=== PATIENT | female | born 1975 | race African-American/Black ===

== ENCOUNTER 2016-03-01 23:51 | Emergency (ER) | payer MEDICAID ==
[~2016-03-01] VITALS: Ht 170.2 cm; Wt 86.2 kg
[~2016-03-01 23:51] MED LIST: ATEN-60; ERGO1CAP6 PO; FAMO-12 PO; FER325T PO; OMEP20CA5 PO; ONDA4TAB8 SL; SUCR1TAB38 OR
[2016-03-02] MEDS ORDERED: HYDROmorphone HCL 2 MG/ML VL IV ONE (05:15)
[2016-03-02] MEDS ORDERED: SODIUM CHLORIDE 0.9% 1,000 ML IV ONE (05:15)
[2016-03-02] MEDS ORDERED: PROMETHAZINE HCL 25 MG/ML 1ML IV ONE (05:15)
[2016-03-02] MEDS ORDERED: PANTOPRAZOLE SODIUM 40 MG/10 ML VIAL IV ONE (05:15)
[2016-03-02 06:11] LABS: Basophils # (auto) 0 uL; Basophils % (auto) 0.8 % (0.0-2.0); Eosinophils # (auto) 0.1 uL; Eosinophils % (auto) 1.1 % (0.0-7.0); Hematocrit 33.1 % (36.0-46.0); Hemoglobin 10.8 g/dL (12.2-16.2); Lymphocytes # (auto) 1.6 uL; Lymphocytes % (auto) 34.8 % (10.0-50.0); Mean Corpuscular Hemoglobin 30.3 pg (28.0-32.0); Mean Corpuscular Hgb Conc. 32.6 g/dL (32.0-36.0); Mean Corpuscular Volume 92.8 fL (80.0-100.0); Mean Platelet Volume 7.8 fL (7.4-10.4); Monocytes # (auto) 0.2 uL; Monocytes % (auto) 3.9 % (0.0-12.0); Neutrophils # (auto) 2.8 uL; Neutrophils % (auto) 59.4 % (37.0-80.0); Platelet Count (auto) 212 10^3/uL (140-450); Red Cell Distribution Width 16.6 % (11.6-16.0); White Blood Cell 4.6 10^3/uL (4.4-10.8)
[2016-03-02 06:25] LABS: Albumin 3.5 g/dL (3.4-5.0); BUN/Creatinine Ratio 7.5; Bilirubin, Total 1.1 mg/dL (0.2-1.0); Calcium 8.1 mg/dL (8.5-10.1); Potassium 3.1 mmol/L (3.5-5.1); Total Protein 6.9 g/dL (6.4-8.2)
[2016-03-02] MEDS ORDERED: POTASSIUM CHL 20 Meq TABLET PO ONE (07:15)
[2016-03-02 08:21] VITALS: BP 134/98
== END 2016-03-02 11:19 | disposition home or self-care (01) ==
LOC: EDBD 23:51 → EDUNIT# 23:51 → ER 23:56
DX: K80.20 Calculus of gallbladder without cholecystitis without obstruction (principal); R10.13 Epigastric pain; K21.9 Gastro-esophageal reflux disease without esophagitis; I10 Essential (primary) hypertension; M54.9 Dorsalgia, unspecified; G89.29 Other chronic pain; R11.2 Nausea with vomiting, unspecified; Z79.899 Other long term (current) drug therapy
CPT/HCPCS: 36415; 74000; 80053; 80320; 83690; 84702; 85025; 96361; 96374; 96375; 99285; C9113; J1170; J2550; J7030

== ENCOUNTER 2016-05-25 23:03 | Observation (INO) | payer MEDICAID ==
[~2016-05-25] VITALS: Ht 170.2 cm; Wt 94.3 kg
[2016-05-26 02:27] LABS: Urine Color Brown (Yellow); Urine Glucose Normal (Normal); Urine Hyaline Cast MANY /lpf (0 - 2); Urine Mucus FEW (None Seen); Urine Nitrite Negative (Negative); Urine RBC 761 /hpf (0 - 4); Urine Squamous Epithelial Cell FEW /hpf (<5); Urine pH 5.5 (5.0-8.0)
[2016-05-26 02:30] LABS: Urine Bilirubin 2+ (Negative); Urine Blood 3+ /uL (Negative); Urine Ketone 1+ (Negative)
[2016-05-26] MEDS ORDERED: ONDANSETRON HCL 4 MG/2 ML VIAL IV ONE (05:30)
[2016-05-26] MEDS ORDERED: SODIUM CHLORIDE 0.9% 1,000 ML IVB ONE (07:10)
[2016-05-26] MEDS ORDERED: DONNATAL 5ml ORAL Elix (BELLADONNA ALK-PHENOBARB) PO ONE (07:15)
[2016-05-26] MEDS ORDERED: cefTRIAXone 1GM/50ML D5W AE IV ONE (07:15)
[2016-05-26] MEDS ORDERED: PROCHLORPERAZINE EDISYLATE 5 MG/ML 2ML VIAL IV ONE (07:15)
[2016-05-26] MEDS ORDERED: ALUM & MAG HYDROX-SIMETH LIQ(MAALOX) 30 ML PO ONE (07:15)
[2016-05-26] MEDS ORDERED: FAMOTIDINE 20 MG TAB PO ONE (07:15)
[2016-05-26 07:40] LABS: Basophils # (auto) 0.1 uL; Basophils % (auto) 0.6 % (0.0-2.0); Eosinophils # (auto) 0 uL; Eosinophils % (auto) 0.2 % (0.0-7.0); Hematocrit 41.9 % (36.0-46.0); Hemoglobin 13.9 g/dL (12.2-16.2); Lymphocytes # (auto) 1.8 uL; Lymphocytes % (auto) 17.2 % (10.0-50.0); Mean Corpuscular Hemoglobin 31.6 pg (28.0-32.0); Mean Corpuscular Hgb Conc. 33.2 g/dL (32.0-36.0); Mean Corpuscular Volume 95.4 fL (80.0-100.0); Mean Platelet Volume 8.9 fL (7.4-10.4); Monocytes # (auto) 0.7 uL; Neutrophils # (auto) 7.7 uL; Platelet Count (auto) 311 10^3/uL (140-450); Red Cell Distribution Width 15.8 % (11.6-16.0); White Blood Cell 10.3 10^3/uL (4.4-10.8)
[2016-05-26 09:31] LABS: Albumin 3.9 g/dL (3.4-5.0); BUN/Creatinine Ratio 13.1; Bilirubin, Total 1.6 mg/dL (0.2-1.0); Calcium 8.8 mg/dL (8.5-10.1); Potassium 3.9 mmol/L (3.5-5.1); Total Protein 8.8 g/dL (6.4-8.2)
[2016-05-26 12:11] VITALS: BP 105/74
[2016-05-26] MEDS ORDERED: NALBUPHINE HCL 10 MG/1ml INJECTION IV ONE (12:15)
[2016-05-26] MEDS ORDERED: METOCLOPRAMIDE HCL 5MG/ml INJ 2ml VIAL IV ONE (12:15)
== END 2016-05-26 13:58 | disposition home or self-care (01) ==
LOC: ER 23:05 → OVERFLOW 05-26 07:13 → ER 05-26 13:58
PROVIDERS: ADMIT Emergency Medicine; ATTEND Emergency Medicine
DX: K80.20 Calculus of gallbladder without cholecystitis without obstruction (principal); E87.1 Hypo-osmolality and hyponatremia; I10 Essential (primary) hypertension; G43.A0 Cyclical vomiting, in migraine, not intractable; N39.0 Urinary tract infection, site not specified; K21.9 Gastro-esophageal reflux disease without esophagitis
CPT/HCPCS: 36415; 80053; 81001; 81025; 83735; 84443; 84702; 85025; 96361; 96374; 96375; 99285; G0378; J0696; J0780; J2300; J2405; J2765

== ENCOUNTER 2016-08-07 17:10 | Inpatient (IN) | payer MEDICAID ==
[~2016-08-07] VITALS: Ht 170.2 cm; Wt 92.8 kg
[~2016-08-07 17:10] MED LIST changes: -ATEN-60; +ATEN-60 PO; -OMEP20CA5 PO; +OMEP20CA74 PO
[2016-08-07 21:02] LABS: Basophils # (auto) 0.1 uL; Basophils % (auto) 0.3 % (0.0-2.0); CONDITION AutoValidated; Eosinophils # (auto) 0 uL; Hematocrit 44.3 % (36.0-46.0); Hemoglobin 14.7 g/dL (12.2-16.2); Lymphocytes # (auto) 1.4 uL; Lymphocytes % (auto) 9.3 % (10.0-50.0); Mean Corpuscular Hemoglobin 30.3 pg (28.0-32.0); Mean Corpuscular Hgb Conc. 33.3 g/dL (32.0-36.0); Mean Corpuscular Volume 91.1 fL (80.0-100.0); Mean Platelet Volume 9.1 fL (7.4-10.4); Monocytes # (auto) 0.6 uL; Monocytes % (auto) 3.7 % (0.0-12.0); Neutrophils # (auto) 13.4 uL; Neutrophils % (auto) 86.7 % (37.0-80.0); Platelet Count (auto) 258 10^3/uL (140-450); White Blood Cell 15.4 10^3/uL (4.4-10.8)
[2016-08-07 21:21] LABS: Urine Blood Negative /uL (Negative); Urine Color Yellow (Yellow); Urine Glucose Normal (Normal); Urine Hyaline Cast MANY /lpf (0 - 2); Urine Mucus FEW (None Seen); Urine Nitrite Negative (Negative); Urine RBC 1 /hpf (0 - 4); Urine Squamous Epithelial Cell MOD /hpf (<5)
[2016-08-07 21:27] LABS: Albumin 4.1 g/dL (3.4-5.0); Alkaline Phosphatase 105 U/L (45-117); Anion Gap 27 (5-15); BUN/Creatinine Ratio 13.2; Bilirubin, Total 3.2 mg/dL (0.2-1.0); Blood Urea Nitrogen 18 mg/dL (7-18); Carbon Dioxide 11 mmol/L (21-32); Chloride 94 mmol/L (98-107); GFR African American 55 mL/min; GFR Non-African American 45 mL/min; Glucose 105 mg/dL (74-106); Sodium 132 mmol/L (136-145); Total Protein 8.9 g/dL (6.4-8.2)
[2016-08-07 21:32] LABS: Aspartate Aminotransferase 40 U/L (15-37)
[2016-08-07 21:36] LABS: Urine Bilirubin 1+ (Negative); Urine Ketone 4+ (Negative)
[2016-08-07] MEDS ORDERED: SODIUM CHLORIDE 0.9% 1,000 ML IV ONE (21:45)
[2016-08-07] MEDS ORDERED: NALBUPHINE HCL 10 MG/1ml INJECTION IV ONE (21:45)
[2016-08-07] MEDS ORDERED: ATENOLOL 50 MG TAB PO ONE (21:45)
[2016-08-07] MEDS ORDERED: ONDANSETRON HCL 4 MG/2 ML VIAL IV ONE (21:45)
[2016-08-08] MEDS ORDERED: PROMETHAZINE HCL 25 MG/ML 1ML IV ONE
[2016-08-08] MEDS ORDERED: cloNIDine HCL 0.1 MG TAB PO PRN (01:00)
[2016-08-08] MEDS ORDERED: ACETAMINOPHEN 325 MG TAB PO PRN (01:00)
[2016-08-08] MEDS ORDERED: PANTOPRAZOLE SODIUM 40 MG/10 ML VIAL IV ONE (01:00)
[2016-08-08] MEDS ORDERED: SODIUM CHLORIDE 0.9% 500 ML IV ONE (01:00)
[2016-08-08] MEDS ORDERED: HYDROcodone-ACET 5/325MG TAB PO PRN (01:00)
[2016-08-08] MEDS ORDERED: TEMAZEPAM 15 MG CAP PO PRN (01:00)
[2016-08-08] MEDS: MORPHINE SULF INJ 2 MG/ML SYRINGE 1ML IV PRN ×6 (01:39→22:54)
[2016-08-08] MEDS: ONDANSETRON HCL 4 MG/2 ML VIAL IV PRN ×6 (01:39→22:54)
[2016-08-08] MEDS: cefTRIAXone 1GM/50ML D5W 50 ML IV SCH (02:00)
[2016-08-08] MEDS: SODIUM CHLORIDE 0.9% 1,000 ML IV SCH ×2 (02:20→14:37)
[2016-08-08] MEDS ORDERED: FERR220E4 PO (04:10)
[2016-08-08] MEDS ORDERED: ZOLP10TA PO (04:10)
[2016-08-08 04:12] VITALS: BP 129/94
[2016-08-08 04:25] VITALS: BP 129/94
[2016-08-08] MEDS: SUCRALFATE 1 GM TAB PO SCH ×4 (06:53→22:20)
[2016-08-08 09:11] VITALS: BP 132/99
[2016-08-08] MEDS: PANTOPRAZOLE SODIUM 40 MG/10 ML VIAL IV SCH (09:56)
[2016-08-08] MEDS: ATENOLOL 25 MG TAB PO SCH ×2 (09:58→22:21)
[2016-08-08] MEDS: ENOXAPARIN SOD 40 MG/0.4 ML SYRINGE SC SCH (09:58)
[2016-08-08 13:42] VITALS: BP 126/88
[2016-08-08 16:59] VITALS: BP 121/81
[2016-08-08 19:29] LABS: BUN/Creatinine Ratio 13.6; Potassium 3.4 mmol/L (3.5-5.1)
[2016-08-08 22:00] VITALS: BP 130/89
[2016-08-09] MEDS ORDERED: SODIUM BICARBONATE 8.4 % INJ 50ML VIAL IV ONE (00:45)
[2016-08-09] MEDS ORDERED: SODIUM CHLORIDE 0.9% 1,000 ML IV SCH (00:49)
[2016-08-09] MEDS: SODIUM BICARB 50ML SYR 100 ML in D5W 5% 1,000 ML IV SCH ×3 (01:34→16:51)
[2016-08-09] MEDS: MORPHINE SULF INJ 2 MG/ML SYRINGE 1ML IV PRN ×3 (03:10→13:31)
[2016-08-09] MEDS: ONDANSETRON HCL 4 MG/2 ML VIAL IV PRN ×3 (03:11→13:31)
[2016-08-09] MEDS: cefTRIAXone 1GM/50ML D5W 50 ML IV SCH (03:11)
[2016-08-09 05:44] VITALS: BP 113/77
[2016-08-09] MEDS: SUCRALFATE 1 GM TAB PO SCH ×3 (06:36→17:00)
[2016-08-09 06:42] LABS: Basophils # (auto) 0 uL; Basophils % (auto) 0.4 % (0.0-2.0); CONDITION AutoValidated; Eosinophils # (auto) 0 uL; Eosinophils % (auto) 0.7 % (0.0-7.0); Hematocrit 34.9 % (36.0-46.0); Hemoglobin 11.9 g/dL (12.2-16.2); Lymphocytes # (auto) 2.4 uL; Lymphocytes % (auto) 38.1 % (10.0-50.0); Mean Corpuscular Hgb Conc. 34.1 g/dL (32.0-36.0); Mean Corpuscular Volume 90.9 fL (80.0-100.0); Mean Platelet Volume 9.5 fL (7.4-10.4); Monocytes # (auto) 0.3 uL; Monocytes % (auto) 4.5 % (0.0-12.0); Neutrophils # (auto) 3.5 uL; Neutrophils % (auto) 56.3 % (37.0-80.0); Platelet Count (auto) 167 10^3/uL (140-450); Red Cell Distribution Width 14.9 % (11.6-16.0); White Blood Cell 6.2 10^3/uL (4.4-10.8)
[2016-08-09 06:46] LABS: Albumin 3.4 g/dL (3.4-5.0); BUN/Creatinine Ratio 10.4; Bilirubin, Total 1.4 mg/dL (0.2-1.0); Potassium 3.1 mmol/L (3.5-5.1)
[2016-08-09 09:31] VITALS: BP 110/78
[2016-08-09] MEDS: PANTOPRAZOLE SODIUM 40 MG/10 ML VIAL IV SCH (10:20)
[2016-08-09 13:02] VITALS: BP 113/61
[2016-08-09] MEDS: ENOXAPARIN SOD 40 MG/0.4 ML SYRINGE SC SCH (13:33)
[2016-08-09] MEDS: ATENOLOL 25 MG TAB PO SCH (13:33)
[2016-08-09] MEDS ORDERED: POTASSIUM CHL 20 Meq TABLET PO ONE ×2 (14:15→18:00)
[2016-08-09 17:19] VITALS: BP 129/77
[2016-08-09 17:21] VITALS: BP 129/77
== END 2016-08-09 19:01 | disposition home or self-care (01) | DRG 241 ==
LOC: EDBD 17:10 → ER 17:16 → OVERFLOW 17:17 → CENTRAL 08-08 02:42
PROVIDERS: ADMIT Nurse Practitioner; ATTEND Internal Medicine
DX: K29.20 Alcoholic gastritis without bleeding (principal); N17.9 Acute kidney failure, unspecified; E87.2 Acidosis; K86.1 Other chronic pancreatitis; I10 Essential (primary) hypertension; D72.829 Elevated white blood cell count, unspecified; E86.0 Dehydration; F10.20 Alcohol dependence, uncomplicated; K21.0 Gastro-esophageal reflux disease with esophagitis; Z87.11 Personal history of peptic ulcer disease; E80.6 Other disorders of bilirubin metabolism; K44.9 Diaphragmatic hernia without obstruction or gangrene; K20.9 Esophagitis, unspecified
CPT/HCPCS: 36415; 71010; 74176; 74181; 80048; 80053; 80307; 81001; 81025; 84484; 85025; 87040; 93005; 96361; 96374; 96375; C9113; J0696; J2405

== ENCOUNTER 2016-11-21 23:48 | Emergency (ER) | payer MEDICAID ==
[~2016-11-21] VITALS: Ht 170.2 cm; Wt 95.3 kg
[~2016-11-21 23:48] MED LIST changes: -FAMO-12 PO; +FERR220E4 PO; -OMEP20CA74 PO; -ONDA4TAB8 SL; -SUCR1TAB38 OR
[2016-11-22] MEDS ORDERED: HYDROmorphone HCL 2 MG/ML VL IV ONE (01:00)
[2016-11-22] MEDS ORDERED: ONDANSETRON HCL 4 MG/2 ML VIAL IV ONE ×2 (01:00→03:00)
[2016-11-22] MEDS ORDERED: ACETAMINOPHEN 325 MG TAB PO ONE (01:15)
[2016-11-22] MEDS ORDERED: MORPHINE SULF INJ 2 MG/ML SYRINGE 1ML IV ONE (03:00)
[2016-11-22 05:23] VITALS: BP 143/97
== END 2016-11-22 05:23 | disposition home or self-care (01) ==
LOC: EDBD 23:48 → ER 23:53
DX: S82.841A Displaced bimalleolar fracture of right lower leg, initial encounter for closed fracture (principal); S90.414A Abrasion, right lesser toe(s), initial encounter; I10 Essential (primary) hypertension; K21.9 Gastro-esophageal reflux disease without esophagitis; Z79.899 Other long term (current) drug therapy; W18.39XA Other fall on same level, initial encounter; Y93.89 Activity, other specified; Y92.89 Other specified places as the place of occurrence of the external cause; Y99.8 Other external cause status
CPT/HCPCS: 29515; 73610; 96374; 96375; 96376; 99284; J1170; J2270; J2405

== ENCOUNTER 2017-01-05 19:39 | Emergency (ER) | payer MEDICAID ==
[~2017-01-05] VITALS: Ht 170.2 cm; Wt 90.7 kg
[2017-01-05 20:27] VITALS: BP 142/102
[2017-01-05] MEDS: IBUPROFEN 800 MG TAB PO ONE (20:45)
== END 2017-01-05 19:57 | disposition left against medical advice (07) ==
LOC: ER 19:39
DX: M25.571 Pain in right ankle and joints of right foot (principal); Z53.21 Procedure and treatment not carried out due to patient leaving prior to being seen by health care provider
CPT/HCPCS: 73610

== ENCOUNTER 2017-01-06 02:50 | Emergency (ER) | payer MEDICAID ==
[~2017-01-06] VITALS: Ht 170.2 cm; Wt 90.7 kg
[2017-01-06 02:53] VITALS: BP 135/97
[2017-01-06] MEDS ORDERED: traMADol HCL 50 MG TAB PO ONE (04:00)
== END 2017-01-06 04:12 | disposition home or self-care (01) ==
LOC: ER 02:51
DX: S93.401A Sprain of unspecified ligament of right ankle, initial encounter (principal); S82.841D Displaced bimalleolar fracture of right lower leg, subsequent encounter for closed fracture with routine healing; X58.XXXD Exposure to other specified factors, subsequent encounter
CPT/HCPCS: 29515

== ENCOUNTER 2017-09-22 20:32 | Emergency (ER) | payer MEDICAID ==
[~2017-09-22] VITALS: Ht 170.2 cm; Wt 90.7 kg
[2017-09-23] MEDS ORDERED: KETOROLAC TROMETH 60MG/2ML VIAL IM ONE (02:30)
[2017-09-23 03:51] VITALS: BP 106/70
== END 2017-09-23 05:24 | disposition home or self-care (01) ==
LOC: ER 20:32
DX: M25.571 Pain in right ankle and joints of right foot (principal); G89.29 Other chronic pain; K21.9 Gastro-esophageal reflux disease without esophagitis; I10 Essential (primary) hypertension; Z79.899 Other long term (current) drug therapy
CPT/HCPCS: 73610; 93971; 96372; 99284; J1885

== ENCOUNTER 2017-12-13 19:02 | Emergency (ER) | payer MEDICAID ==
[~2017-12-13] VITALS: Ht 170.2 cm; Wt 87.5 kg
[2017-12-13] MEDS ORDERED: cloNIDine HCL 0.1 MG TAB PO ONE (19:30)
[2017-12-13 21:06] VITALS: BP 128/93
[2017-12-13] MEDS ORDERED: methylPREDNISolone SOD SUCC 125 MG/2 ML VL IM ONE (21:15)
[2017-12-13] MEDS ORDERED: KETOROLAC TROMETH 60MG/2ML VIAL IM ONE (21:15)
== END 2017-12-13 21:55 | disposition home or self-care (01) ==
LOC: ER 19:02
DX: M79.604 Pain in right leg (principal); K21.9 Gastro-esophageal reflux disease without esophagitis; I10 Essential (primary) hypertension; F12.90 Cannabis use, unspecified, uncomplicated; Z79.899 Other long term (current) drug therapy
CPT/HCPCS: 96372; 99284; J1885; J2930

== ENCOUNTER 2018-02-22 19:31 | Inpatient (IN) | payer SELFPAY ==
[~2018-02-22] VITALS: Ht 170.2 cm; Wt 85.5 kg
[2018-02-22] MEDS ORDERED: ONDANSETRON HCL 4 MG/2 ML VIAL IV ONE (22:45)
[2018-02-22 23:34] LABS: Basophils # (auto) 0.1 uL; Basophils % (auto) 1.1 % (0.0-2.0); Eosinophils # (auto) 0 uL; Eosinophils % (auto) 0.2 % (0.0-7.0); Hematocrit 33.8 % (36.0-46.0); Hemoglobin 10.6 g/dL (12.2-16.2); Lymphocytes # (auto) 1.1 uL; Lymphocytes % (auto) 12.9 % (10.0-50.0); Mean Corpuscular Hemoglobin 27.5 pg (28.0-32.0); Mean Corpuscular Hgb Conc. 31.3 g/dL (32.0-36.0); Monocytes # (auto) 0.4 uL; Monocytes % (auto) 4.6 % (0.0-12.0); Neutrophils % (auto) 81.2 % (37.0-80.0); Nucleated Red Blood Cells % 0.1 %; Platelet Count (auto) 304 10^3/uL (140-450); Red Blood Cells 3.84 10^6/uL (4.0-5.20); White Blood Cell 8.7 10^3/uL (4.4-10.8)
[2018-02-22 23:37] LABS: Red Cell Distribution Width 23.4 % (11.8-14.3)
[2018-02-22 23:46] LABS: Albumin 3.6 g/dL (3.4-5.0); BUN/Creatinine Ratio 7.3; Calcium 7.4 mg/dL (8.5-10.1); Potassium 4.6 mmol/L (3.5-5.1)
[2018-02-22 23:49] LABS: Bilirubin, Total 1.6 mg/dL (0.2-1.0); Total Protein 8.3 g/dL (6.4-8.2)
[2018-02-22 23:55] LABS: Urine Bacteria FEW /hpf (None Seen); Urine Blood Negative /uL (Negative); Urine Hyaline Cast MOD /lpf (0 - 2); Urine Specific Gravity 1.014 (1.001-1.035); Urine WBC <1 /hpf (0 - 5)
[2018-02-23] MEDS ORDERED: ONDANSETRON HCL 4 MG/2 ML VIAL ONE (01:46)
[2018-02-23] MEDS ORDERED: ONDANSETRON HCL 4 MG/2 ML VIAL IV ONE ×2 (02:00→02:30)
[2018-02-23] MEDS ORDERED: SODIUM CHLORIDE 0.9% 1,000 ML IV ONE (02:00)
[2018-02-23] MEDS ORDERED: MORPHINE SULFATE 10 MG/ML INJ 1ML SDV IV ONE (02:30)
[2018-02-23] MEDS ORDERED: SODIUM BICARBONATE 8.4 % INJ 50ML VIAL IV ONE (04:00)
[2018-02-23] MEDS ORDERED: PANTOPRAZOLE 40 MG/10 ML VIAL IV ONE (04:30)
[2018-02-23] MEDS ORDERED: SODIUM CHLORIDE 0.9% 1,000 ML IV SCH (04:30)
[2018-02-23] MEDS: ONDANSETRON HCL 4 MG/2 ML VIAL IV PRN (05:14)
[2018-02-23] MEDS: MORPHINE SULFATE 10 MG/ML INJ 1ML SDV IV PRN ×4 (05:14→22:20)
[2018-02-23 07:52] LABS: Basophils # (auto) 0.1 uL; Basophils % (auto) 0.6 % (0.0-2.0); Eosinophils # (auto) 0 uL; Red Blood Cells 3.69 10^6/uL (4.0-5.20)
[2018-02-23 07:54] LABS: Eosinophils % (auto) 0.1 % (0.0-7.0); Hematocrit 33.6 % (36.0-46.0); Lymphocytes % (auto) 8.6 % (10.0-50.0); Mean Corpuscular Hgb Conc. 29.7 g/dL (32.0-36.0); Mean Corpuscular Volume 90.9 fL (80.0-100.0); Monocytes # (auto) 0.7 uL; Monocytes % (auto) 5.7 % (0.0-12.0); Neutrophils # (auto) 10.2 uL; Nucleated Red Blood Cells % 0.1 %; Platelet Count (auto) 254 10^3/uL (140-450)
[2018-02-23 07:56] LABS: Red Cell Distribution Width 22.9 % (11.8-14.3)
[2018-02-23 08:01] LABS: BUN/Creatinine Ratio 3.1; Calcium 7.4 mg/dL (8.5-10.1); Potassium 3.5 mmol/L (3.5-5.1)
[2018-02-23] MEDS ORDERED: metroNIDAZOLE 500MG/100ML 100 ML IV ONE (09:00)
[2018-02-23] MEDS ORDERED: cefTRIAXone 1GM/50ML D5W 50 ML IV ONE (09:00)
[2018-02-23] MEDS: cefTRIAXone 1GM/50ML D5W 50 ML IV SCH (09:48)
[2018-02-23] MEDS: PROMETHAZINE HCL 25 MG/ML 1ML IV PRN ×3 (09:48→22:20)
[2018-02-23] MEDS: PANTOPRAZOLE 40 MG/10 ML VIAL IV SCH ×2 (09:48→22:20)
[2018-02-23 10:56] VITALS: BP 153/94
--- NOTE | 2018-02-23 10:56 | NUR ---
Telemetry admit from ER JOE BARRAGAN admitted to Telemetry unit after SBAR received. Patient oriented to Carol Mckeon, primary RN, unit, room, bed, and unit policies regarding patient care and visiting hours. Patient now on continuous telemetry monitoring, tele box #[id number] . Patient placed on bedside oxygen, weighed by bedscale and encouraged to call if they need something. All questions and concerns addressed, patient verbalized understanding.
[2018-02-23] MEDS: SODIUM BICARBONATE 50ML VIAL 150 ML in D5W 5% 1,000 ML IV SCH ×2 (12:49→20:30)
[2018-02-23 14:17] LABS: INR 1.02 (0.9-1.15); Prothrombin Time 10.9 sec (9.27-12.13)
[2018-02-23] MEDS: metroNIDAZOLE 500MG/100ML 100 ML IV SCH ×2 (15:00→22:21)
[2018-02-23] MEDS ORDERED: DOCUSATE SOD 100 MG CAP PO PRN (15:15)
--- NOTE | 2018-02-23 19:19 | NUR ---
CLOSING NOTE ENDORSED CARE TO BRISEYDA RENO.
[2018-02-23 20:02] LABS: Alcohol, Urine < 3.0 mg/dL (0-5); Amphetamine Screen, Urine NEGATIVE (NEGATIVE); Barbiturate Scree,Urine NEGATIVE (NEGATIVE); Benzodiazephine Screen, Urine NEGATIVE (NEGATIVE); Cannabinoid Screen, Urine NEGATIVE (NEGATIVE); Cocaine Screen, Urine NEGATIVE (NEGATIVE); Opiate Scree,Urine POSITIVE (NEGATIVE); Phencyclidine Screen, Urine NEGATIVE (NEGATIVE)
--- NOTE | 2018-02-23 21:40 | NUR ---
Increased HR Received a message that the patient's HR increased to the 130s. Assessed the patient, she denied any recent changes, did not try to ambulate, denied chest pain. Assessed her HR manually and it was 116 Bpm. Noticed artifact when looking at the rhythm on the monitor. Will continue to monitor the situation.
[2018-02-23 22:09] VITALS: BP 134/92
[2018-02-23] MEDS: diphenhdrAMINE HCL 25 MG CAP PO PRN (22:39)
[2018-02-24] MEDS: PROMETHAZINE HCL 25 MG/ML 1ML IV PRN ×4 (02:34→21:56)
[2018-02-24] MEDS: SODIUM BICARBONATE 50ML VIAL 150 ML in D5W 5% 1,000 ML IV SCH (02:34)
[2018-02-24] MEDS: ACETAMINOPHEN 325 MG TAB PO PRN ×2 (02:46→12:53)
[2018-02-24] MEDS: MORPHINE SULFATE 10 MG/ML INJ 1ML SDV IV PRN ×3 (04:46→21:56)
[2018-02-24 05:08] VITALS: BP 136/92
[2018-02-24] MEDS: metroNIDAZOLE 500MG/100ML 100 ML IV SCH ×3 (05:53→21:55)
--- NOTE | 2018-02-24 06:38 | NUR ---
Shift Note The patient had an uneventful night, tolerated treatments wells, but didn't sleep much. The patient dealt with pain most of the night, was able to take pain meds that took the edge off. The patient has been NPO since 0000hrs, 02/24/2018. All consent forms signed and witnessed. The patient's HR was up and down throughout the night. She went as high as 146 during a coughing spell but came back down to 100s to 120 bpm. Will continue to monitor.
--- NOTE | 2018-02-24 07:30 | NUR ---
OPENING NOTE ASSUMED CARE OF PT. PT IS LAYING ON BED, HO LOW-FOWLERS. A&O X4. PT ON 2 LPM/NC, O2 SATURATIONS 100%. NO SIGNS OF SOB/DISTRESS NOTED. PT ON TELE #48, HR 121. SAFETY PRECAUTIONS IN PLACE INCLUDING BED SET TO LOWEST POSITION/LOCKED. BEDSIDE RAILS UP X2. CALL LIGHT WITHIN REACH. INSTRUCTED PT TO CALL FOR ASSISTANCE. DISCUSSED POC WITH PT. PT VERBALIZED UNDERSTANDING. WILL CONTINUE TO MONITOR Q 1HR AND PRN.
[2018-02-24] MEDS ORDERED: LIDOCAINE VISCOUS 2% 15ML UD ONE (08:23)
[2018-02-24] MEDS ORDERED: diphenhdrAMINE HCL 50 MG/1 ML VL ONE (08:23)
[2018-02-24] MEDS ORDERED: SODIUM CHLORIDE LOCK 10 ML ONE (08:23)
[2018-02-24 09:00] VITALS: BP 143/83
[2018-02-24] MEDS: cefTRIAXone 1GM/50ML D5W 50 ML IV SCH (09:00)
--- NOTE | 2018-02-24 09:16 | NUR ---
PATIENT OFF UNITS VIA BED TO OR.
[2018-02-24] MEDS: PANTOPRAZOLE 40 MG/10 ML VIAL IV SCH (09:54)
[2018-02-24] MEDS: fentaNYL CITRATE 100 MCG/2 ML VL ONE ×2 (10:19→10:22)
[2018-02-24] MEDS: MIDAZOLAM HCL 5 MG/ML-1ML VIAL ONE ×2 (10:19→10:22)
[2018-02-24] MEDS: SODIUM CHLORIDE 0.9% 1,000 ML IV SCH ×2 (10:45→17:25)
[2018-02-24] MEDS ORDERED: PANTOPRAZOLE 40 MG TAB PO ONE (10:45)
--- NOTE | 2018-02-24 11:01 | NUR ---
PATIENT BACK ON UNIT VIA BED FROM OR. NO SIGNS OF SOB/DISTRESS NOTED. WILL CONTINUE TO MONITOR.
--- NOTE | 2018-02-24 11:15 | NUR ---
PATIENT TEMPERATURE 99.2, COOLING MEASURES IN PLACE. WILL CONTINUE TO MONITOR.
--- NOTE | 2018-02-24 11:45 | NUR ---
PATIENT TEMPERATURE 99.0, COOLING MEASURES IN PLACE. WILL CONTINUE TO MONITOR.
--- NOTE | 2018-02-24 12:30 | NUR ---
REASSESSMENT TEMP PATIENTS TEMP 98.8
[2018-02-24 13:00] VITALS: BP 115/72
[2018-02-24 17:00] VITALS: BP 127/47
--- NOTE | 2018-02-24 19:20 | NUR ---
CLOSING NOTE ENDORSED CARE TO ANGELA RENO.
--- NOTE | 2018-02-24 21:50 | NUR ---
IV insertion IV access obtained, via clean sterile technique by inserting 22 gauge catheter at RIGHT HAND after 1 attempt(s). IV secured properly. No trauma to site. Patient tolerated well.
[2018-02-24] MEDS: PANTOPRAZOLE 40 MG TAB PO SCH (21:56)
[2018-02-24 22:00] VITALS: BP 115/75
[2018-02-25] MEDS: SODIUM CHLORIDE 0.9% 1,000 ML IV SCH ×4 (00:05→20:05)
[2018-02-25] MEDS: MORPHINE SULFATE 10 MG/ML INJ 1ML SDV IV PRN ×4 (02:19→22:14)
[2018-02-25] MEDS: PROMETHAZINE HCL 25 MG/ML 1ML IV PRN ×2 (02:19→06:29)
[2018-02-25 05:00] VITALS: BP 117/81
[2018-02-25 06:14] LABS: Basophils # (auto) 0 uL; Basophils % (auto) 0.3 % (0.0-2.0); Eosinophils # (auto) 0.1 uL; Eosinophils % (auto) 1.4 % (0.0-7.0); Hematocrit 26.8 % (36.0-46.0); Hemoglobin 8.7 g/dL (12.2-16.2); Lymphocytes # (auto) 1.4 uL; Lymphocytes % (auto) 30.3 % (10.0-50.0); Mean Corpuscular Hgb Conc. 32.4 g/dL (32.0-36.0); Mean Corpuscular Volume 86.5 fL (80.0-100.0); Monocytes # (auto) 0.3 uL; Monocytes % (auto) 7.4 % (0.0-12.0); Neutrophils # (auto) 2.8 uL; Neutrophils % (auto) 60.6 % (37.0-80.0); Nucleated Red Blood Cells % 0.2 %; Platelet Count (auto) 157 10^3/uL (140-450); Red Blood Cells 3.09 10^6/uL (4.0-5.20); White Blood Cell 4.7 10^3/uL (4.4-10.8)
[2018-02-25 06:24] LABS: Albumin 3.1 g/dL (3.4-5.0); BUN/Creatinine Ratio 3.8; Calcium 7.6 mg/dL (8.5-10.1); Red Cell Distribution Width 23.6 % (11.8-14.3)
[2018-02-25 06:27] LABS: Total Protein 6.8 g/dL (6.4-8.2)
[2018-02-25] MEDS: metroNIDAZOLE 500MG/100ML 100 ML IV SCH ×3 (06:28→22:13)
[2018-02-25 06:40] LABS: Potassium 2.8 mmol/L (3.5-5.1)
--- NOTE | 2018-02-25 06:51 | NUR ---
critical lab called. pt potassium is 2.8. paged hospitalist. awaiting call back.
--- NOTE | 2018-02-25 07:15 | NUR ---
Received report from shyann Chacon. Pt resting in bed with IV infusing to right hand. Bed in low pos., locked, rails up x 2, call light in reach. No distress noted.
[2018-02-25] MEDS: cefTRIAXone 1GM/50ML D5W 50 ML IV SCH (09:21)
[2018-02-25] MEDS: PANTOPRAZOLE 40 MG TAB PO SCH ×2 (09:21→22:14)
[2018-02-25 09:31] VITALS: BP 119/61
[2018-02-25] MEDS ORDERED: POTASSIUM CHL 20 Meq TABLET PO ONE (10:30)
[2018-02-25] MEDS ORDERED: IOHEXOL 300 MG/ML 100ML BOTTLE IJ ONE (11:01)
[2018-02-25] MEDS: ONDANSETRON HCL 4 MG/2 ML VIAL IV PRN (11:40)
[2018-02-25] MEDS ORDERED: LACTULOSE 20Gm/30ML SOLN PO ONE (12:30)
[2018-02-25 13:14] VITALS: BP 117/89
[2018-02-25 17:04] VITALS: BP 137/69
--- NOTE | 2018-02-25 22:05 | NUR ---
IV insertion IV access obtained, via clean sterile technique by inserting 22 gauge catheter at RIGHT FOREARM after 1 attempt(s). IV secured properly. No trauma to site. Patient tolerated well. IV removal IV DC'd with clean sterile technique, catheter fully intact. Pressure dressing applied to site. Patient tolerated well. NOTE: OLD IV NOT FLUSHING.
[2018-02-26] MEDS: SODIUM CHLORIDE 0.9% 1,000 ML IV SCH ×4 (02:45→23:05)
[2018-02-26] MEDS: diphenhdrAMINE HCL 25 MG CAP PO PRN (03:00)
[2018-02-26] MEDS: MORPHINE SULFATE 10 MG/ML INJ 1ML SDV IV PRN ×2 (03:01→08:30)
[2018-02-26 05:00] VITALS: BP 112/80
[2018-02-26] MEDS: metroNIDAZOLE 500MG/100ML 100 ML IV SCH ×3 (05:42→21:57)
[2018-02-26 07:01] LABS: Basophils # (auto) 0 uL; Basophils % (auto) 0.4 % (0.0-2.0); Eosinophils # (auto) 0.1 uL; Eosinophils % (auto) 2.2 % (0.0-7.0); Lymphocytes # (auto) 1.4 uL; Monocytes # (auto) 0.3 uL; Neutrophils # (auto) 1.7 uL; Red Blood Cells 2.92 10^6/uL (4.0-5.20); White Blood Cell 3.4 10^3/uL (4.4-10.8)
[2018-02-26 07:03] LABS: Hematocrit 25.5 % (36.0-46.0); Hemoglobin 8.1 g/dL (12.2-16.2); Lymphocytes % (auto) 40.2 % (10.0-50.0); Mean Corpuscular Hemoglobin 27.8 pg (28.0-32.0); Mean Corpuscular Hgb Conc. 31.9 g/dL (32.0-36.0); Mean Corpuscular Volume 87.3 fL (80.0-100.0); Monocytes % (auto) 7.9 % (0.0-12.0); Neutrophils % (auto) 49.3 % (37.0-80.0); Nucleated Red Blood Cells % 0.2 %; Platelet Count (auto) 129 10^3/uL (140-450)
[2018-02-26 07:21] LABS: Calcium 7.7 mg/dL (8.5-10.1)
--- NOTE | 2018-02-26 07:25 | NUR ---
Received report from night RN Ines. Pt resting in bed, bed in low position, locked, rails up x2, call light in reach. No distress noted. NS fluids infusing to right hand.
[2018-02-26 07:26] LABS: Bilirubin, Total 0.6 mg/dL (0.2-1.0); Total Protein 6.4 g/dL (6.4-8.2)
[2018-02-26 08:10] LABS: Potassium 2.7 mmol/L (3.5-5.1)
--- NOTE | 2018-02-26 08:10 | NUR ---
CRITICAL LAB Notified by Jason of Lab that the potassium is 2.[address] Rocha and he ordered 60 meq of potassium liquid.
[2018-02-26] MEDS: cefTRIAXone 1GM/50ML D5W 50 ML IV SCH (08:29)
[2018-02-26] MEDS ORDERED: POTASSIUM CHL 20 Meq TABLET PO ONE ×2 (08:30→09:15)
[2018-02-26 08:53] VITALS: BP 100/68
[2018-02-26] MEDS: PANTOPRAZOLE 40 MG TAB PO SCH ×2 (10:17→21:57)
[2018-02-26] MEDS: ATENOLOL 50 MG TAB PO SCH (10:18)
[2018-02-26 13:00] VITALS: BP 109/70
[2018-02-26] MEDS: ACETAMINOPHEN 325 MG TAB PO PRN (13:25)
[2018-02-26 17:00] VITALS: BP 104/71
--- NOTE | 2018-02-26 17:00 | NUR ---
CARDIOLOGY NOTE SPOKE TO DR. GIBBS TODAY. HE SAYS HE HAS VIEWED THE CHART AND WILL SEE THE PATIENT WHEN HER POTASSIUM IS WITHIN NORMAL. HE SAID TO GIVE MORE POTASSIUM: 50 MEQ OF POTASSIUM PO TODAY, BWSIDES WHAT SHE HAS ALREADY RECEIVED.
[2018-02-26] MEDS ORDERED: POTASSIUM EFFERVESENT TAB 25 MEQ PO ONE (17:15)
--- NOTE | 2018-02-26 19:15 | NUR ---
SHIFT REPORT Report given to SHADIA Connors of night shift supervisor. Pt. resting in bed, bed locked, in low pos., rails up x2 and call light in reach.
[2018-02-26 22:00] VITALS: BP 114/75
[2018-02-27] MEDS: MORPHINE SULFATE 10 MG/ML INJ 1ML SDV IV PRN (00:27)
[2018-02-27] MEDS: ACETAMINOPHEN 325 MG TAB PO PRN ×2 (03:09→09:53)
[2018-02-27 05:00] VITALS: BP 104/69
[2018-02-27] MEDS: SODIUM CHLORIDE 0.9% 1,000 ML IV SCH ×2 (05:23→12:05)
[2018-02-27 05:28] LABS: Basophils # (auto) 0 uL; Eosinophils # (auto) 0.1 uL; Hemoglobin 7.8 g/dL (12.2-16.2); Lymphocytes # (auto) 1.3 uL; Mean Corpuscular Hemoglobin 28.6 pg (28.0-32.0); Monocytes # (auto) 0.6 uL; Neutrophils # (auto) 1.6 uL; Red Blood Cells 2.71 10^6/uL (4.0-5.20); White Blood Cell 3.7 10^3/uL (4.4-10.8)
[2018-02-27 05:39] LABS: Basophils % (auto) 0.4 % (0.0-2.0); Eosinophils % (auto) 2.3 % (0.0-7.0); Hematocrit 24.3 % (36.0-46.0); Lymphocytes % (auto) 35.8 % (10.0-50.0); Mean Corpuscular Volume 89.6 fL (80.0-100.0); Neutrophils % (auto) 44.5 % (37.0-80.0); Nucleated Red Blood Cells % 0.4 %; Platelet Count (auto) 121 10^3/uL (140-450)
[2018-02-27] MEDS: metroNIDAZOLE 500MG/100ML 100 ML IV SCH (05:47)
[2018-02-27 05:56] LABS: Albumin 2.7 g/dL (3.4-5.0); Calcium 7.2 mg/dL (8.5-10.1); Potassium 3.5 mmol/L (3.5-5.1)
[2018-02-27 06:00] LABS: BUN/Creatinine Ratio 9.8; Bilirubin, Total 0.4 mg/dL (0.2-1.0); Total Protein 5.9 g/dL (6.4-8.2)
[2018-02-27 06:49] LABS: Red Cell Distribution Width 24.6 % (11.8-14.3)
--- NOTE | 2018-02-27 07:00 | NUR ---
Opening Shift Note Assumed care of patient, awake, alert, and oriented x4. No S/S of distress/SOB, but patient reports generalized body pain of 8/10. IV in right hand 22 gauge asymptomatic, patent, intact, and infusing normal saline at 10 mL/hour. Bed locked and in lowest position and call light is within reach. Instructed on POC and to call for assist PRN, and patient verbalized understanding. Will continue to monitor for changes Q1hr and PRN.
--- NOTE | 2018-02-27 07:15 | NUR ---
ENDORSED PATIENT CARE TO DAY SHIFT NURSE DORITA RENO. PATIENT IS RESTING IN BED. NO S/SX OF DISTRESS OR SOB.
--- NOTE | 2018-02-27 09:00 | NUR ---
PATIENT TAKEN TO MRI VIA WHEELCHAIR
[2018-02-27 09:04] VITALS: BP 110/77
--- NOTE | 2018-02-27 09:40 | NUR ---
PATIENT RETURNED FROM MRI VIA WHEELCHAIR.
[2018-02-27] MEDS: cefTRIAXone 1GM/50ML D5W 50 ML IV SCH (09:52)
[2018-02-27] MEDS: PANTOPRAZOLE 40 MG TAB PO SCH (09:52)
[2018-02-27] MEDS: ATENOLOL 50 MG TAB PO SCH (09:52)
--- NOTE | 2018-02-27 10:30 | NUR ---
DR. WHITMORE AT BEDSIDE. NEW ORDERS RECEIVED.
[2018-02-27 13:00] VITALS: BP 107/79
--- NOTE | 2018-02-27 14:00 | NUR ---
Discharge instructions given as ordered. Encourage to follow up with PMD as instructed. All questions and concerns addressed. Patient verbalized understanding. Medication reconciliation form completed and copy given to patient. IV removed with catheter intact, pressure dressing applied. Telemetry unit returned to [facility]. Patient walked out to car with all personal belongings, accompanied by family member. No distress noted at time of departure.
== END 2018-02-27 14:00 | disposition home or self-care (01) | DRG 444 ==
LOC: ER 19:31 → EDBD 19:31 → TELE 02-23 04:22 → TELE-CENTR 02-23 10:50
PROVIDERS: ADMIT Nurse Practitioner Family; ATTEND Family Medicine
PROC: 0DJ08ZZ Inspection of Upper Intestinal Tract, Via Natural or Artificial Opening Endoscopic (ICD-10-PCS; principal; 2018-02-24 10:14)
DX: K80.20 Calculus of gallbladder without cholecystitis without obstruction (principal); K85.90 Acute pancreatitis without necrosis or infection, unspecified; K86.1 Other chronic pancreatitis; K92.0 Hematemesis; E87.6 Hypokalemia; I10 Essential (primary) hypertension; K21.0 Gastro-esophageal reflux disease with esophagitis; D64.9 Anemia, unspecified; K72.90 Hepatic failure, unspecified without coma; R00.0 Tachycardia, unspecified; Z87.11 Personal history of peptic ulcer disease
CPT/HCPCS: 36415; 74177; 74181; 76705; 78226; 80048; 80053; 80307; 81001; 83690; 84702; 85025; 85610; 86850; 86900; 86901; 87040; 96361; 96374; 96375; A6257; C9113; G0378; J0696; J2250; J2405; J3490

== ENCOUNTER 2018-10-10 14:37 | Inpatient (IN) | payer MEDICAID ==
[~2018-10-10] VITALS: Ht 170.2 cm; Wt 79.1 kg
[~2018-10-10 14:37] MED LIST changes: +FAM20T PO; +OME20T PO; +ZOLP12.564 PO
[2018-10-10] MEDS ORDERED: SODIUM CHLORIDE 0.9% 1,000 ML IVB ONE (15:11)
[2018-10-10] MEDS ORDERED: ASPirin 81 mg TAB PO ONE (15:15)
[2018-10-10 16:11] LABS: BUN/Creatinine Ratio 3.7; Calcium 7.1 mg/dL (8.5-10.1); Magnesium 1.1 mg/dL (1.6-2.6)
[2018-10-10 16:14] LABS: Bilirubin, Total 1.9 mg/dL (0.2-1.0); Total Protein 7.1 g/dL (6.4-8.2)
[2018-10-10 16:16] LABS: Basophils # (auto) 0 uL; Basophils % (auto) 0.7 % (0.0-2.0); Eosinophils # (auto) 0 uL; Hematocrit 28.1 % (36.0-46.0); Hemoglobin 8.9 g/dL (12.2-16.2); Lymphocytes # (auto) 0.7 uL; Lymphocytes % (auto) 11.3 % (10.0-50.0); Mean Corpuscular Hemoglobin 24.9 pg (28.0-32.0); Mean Corpuscular Hgb Conc. 31.7 g/dL (32.0-36.0); Mean Corpuscular Volume 78.3 fL (80.0-100.0); Monocytes # (auto) 0.3 uL; Monocytes % (auto) 3.8 % (0.0-12.0); Neutrophils # (auto) 5.6 uL; Neutrophils % (auto) 84.2 % (37.0-80.0); Nucleated Red Blood Cells % 0.1 %; Platelet Count (auto) 301 10^3/uL (140-450); Potassium 2.7 mmol/L (3.5-5.1); Red Blood Cells 3.59 10^6/uL (4.0-5.20); White Blood Cell 6.6 10^3/uL (4.4-10.8)
[2018-10-10 16:17] LABS: Red Cell Distribution Width 25.6 % (11.8-14.3)
[2018-10-10 16:31] LABS: INR 1.21 (0.9-1.15); Partial Thromboplastin Time 25.6 sec (23.64-32.05)
[2018-10-10] MEDS ORDERED: POTASSIUM CHL 20 Meq TABLET PO ONE (17:30)
[2018-10-10] MEDS ORDERED: MORPHINE SULFATE 4 MG/ML SYR/VIAL IV ONE (17:45)
[2018-10-10] MEDS ORDERED: ONDANSETRON HCL 4 MG/2 ML VIAL IV ONE (17:45)
[2018-10-10 19:27] LABS: Alcohol, Urine < 3.0 mg/dL (0-5); Amphetamine Screen, Urine NEGATIVE (NEGATIVE); Barbiturate Scree,Urine NEGATIVE (NEGATIVE); Benzodiazephine Screen, Urine NEGATIVE (NEGATIVE); Cannabinoid Screen, Urine NEGATIVE (NEGATIVE); Cocaine Screen, Urine NEGATIVE (NEGATIVE); Opiate Scree,Urine NEGATIVE (NEGATIVE); Phencyclidine Screen, Urine NEGATIVE (NEGATIVE)
[2018-10-10] MEDS ORDERED: NITROGLYCERIN 0.4 MG SL TAB SL PRN (20:00)
[2018-10-10] MEDS ORDERED: MORPHINE SULF INJ 2 MG/ML SYRINGE 1ML IV PRN (20:00)
[2018-10-10] MEDS ORDERED: ACETAMINOPHEN 500 MG TAB PO PRN (20:00)
[2018-10-10] MEDS ORDERED: SUCRALFATE 1 GM/10 ML ORAL SUSP PO ONE (20:00)
[2018-10-10] MEDS ORDERED: LORazepam 2MG/ML-1ML VIAL IV PRN (20:00)
[2018-10-10] MEDS: SOD CHL 0.9%/ KCL 20MEQ 1,000 ML IV SCH (20:30)
[2018-10-10] MEDS: MORPHINE SULF INJ 2 MG/ML SYRINGE 1ML IV PRN (21:07)
[2018-10-10] MEDS: ONDANSETRON HCL 4 MG/2 ML VIAL IV PRN (21:07)
[2018-10-10] MEDS: FAMOTIDINE (10MG/ML) 2ML VL IV SCH (22:55)
[2018-10-11] MEDS: MORPHINE SULF INJ 2 MG/ML SYRINGE 1ML IV PRN ×5 (01:55→22:21)
[2018-10-11 06:59] LABS: Eosinophils # (auto) 0 uL; Eosinophils % (auto) 0.2 % (0.0-7.0); Hemoglobin 8.9 g/dL (12.2-16.2); Monocytes # (auto) 0.4 uL; Neutrophils # (auto) 4.2 uL; Nucleated Red Blood Cells % 0.2 %
[2018-10-11 07:02] LABS: Basophils # (auto) 0.1 uL; Basophils % (auto) 0.9 % (0.0-2.0); Hematocrit 27.4 % (36.0-46.0); Lymphocytes # (auto) 1.3 uL; Lymphocytes % (auto) 22.1 % (10.0-50.0); Mean Corpuscular Hemoglobin 25.2 pg (28.0-32.0); Mean Corpuscular Hgb Conc. 32.5 g/dL (32.0-36.0); Mean Corpuscular Volume 77.7 fL (80.0-100.0); Monocytes % (auto) 6.5 % (0.0-12.0); Neutrophils % (auto) 70.3 % (37.0-80.0); Platelet Count (auto) 253 10^3/uL (140-450); Red Blood Cells 3.53 10^6/uL (4.0-5.20)
[2018-10-11 07:07] LABS: Red Cell Distribution Width 25.9 % (11.8-14.3)
[2018-10-11] MEDS: SOD CHL 0.9%/ KCL 20MEQ 1,000 ML IV SCH ×2 (07:25→18:13)
[2018-10-11] MEDS: ONDANSETRON HCL 4 MG/2 ML VIAL IV PRN ×3 (08:13→22:22)
[2018-10-11 08:49] LABS: Albumin 2.7 g/dL (3.4-5.0); BUN/Creatinine Ratio 1.6; Calcium 6.5 mg/dL (8.5-10.1)
[2018-10-11 08:51] LABS: Bilirubin, Total 1.7 mg/dL (0.2-1.0); Total Protein 6.9 g/dL (6.4-8.2)
[2018-10-11] MEDS ORDERED: PANTOPRAZOLE 40 MG TAB PO SCH (10:00)
[2018-10-11] MEDS: FAMOTIDINE (10MG/ML) 2ML VL IV SCH (10:04)
[2018-10-11] MEDS ORDERED: POTASSIUM CHLORIDE 40 MEQ, LIDOCAINE 1% (LOCAL ANESTH.) 4 ML in SODIUM CHL 0.9% 100 ML IV ONE (11:00)
[2018-10-11] MEDS ORDERED: chlordiazePOXIDE HCL 5 MG CAP PO PRN (11:15)
[2018-10-11] MEDS: MAGNESIUM SULFATE 1GM/100ML 100 ML IV SCH ×3 (11:23→13:00)
[2018-10-11] MEDS: FOLIC ACID 1 MG, MULTIPLE VITAMIN 10 ML, MAGNESIUM SULF SDV 50% 8 MEQ, THIAMINE INJ 100... INJ SCH ×5 (12:52)
--- NOTE | 2018-10-11 16:30 | NUR ---
Telemetry admit from ER JOE BARRAGAN admitted to Telemetry unit after SBAR received. Patient oriented to Nidia Kaiser RN primary RN, unit, room, bed, and unit policies regarding patient care and visiting hours. Patient now on continuous telemetry monitoring, tele box # [phone]. Patient encouraged to call if they need something. All questions and concerns addressed, patient verbalized understanding.
--- NOTE | 2018-10-11 18:13 | NUR ---
HOSPICE BEREAVEMENT COORDINATOR HOSPITALIST PAGED FOR DIET ORDERS. PER HORSE EXERCISER PATIENT HAD CLEAR LIQUID DIET.
[2018-10-11 18:57] VITALS: BP 136/91
--- NOTE | 2018-10-11 19:15 | NUR ---
Opening Shift Note Received report from Nidia RENO. Assumed care of patient, awake and alert. No S/S of distress/SOB or pain. Instructed on POC and to call for assist PRN. Fall precaution measures in place, will continue to monitor for changes Q1hr and PRN.
[2018-10-11 19:52] LABS: Potassium 3.2 mmol/L (3.5-5.1)
[2018-10-11 19:55] LABS: Magnesium 2.1 mg/dL (1.6-2.6)
--- NOTE | 2018-10-11 20:00 | NUR ---
Paged hospitalist for diet, awaiting for call back. Patient states she can only tolerate liquid diet.
[2018-10-11] MEDS: PANTOPRAZOLE 40 MG TAB PO SCH (22:21)
[2018-10-11 22:28] VITALS: BP 126/85
[2018-10-12] MEDS: SOD CHL 0.9%/ KCL 20MEQ 1,000 ML IV SCH ×3 (04:30→22:00)
[2018-10-12 05:00] VITALS: BP 126/92
--- NOTE | 2018-10-12 07:40 | NUR ---
opening patient in bed, awake, bed in lowest position, call light within reach. No distress noted at this time. WIll f/u with morning assessment reviewing charts SANDIE and Jennifer kim have seen this patient for GI continue PPIs, and awaiting cardiac clearance for egd abd pelvis ct shows progressive pulmonary fibrosis, L and R low lobes, cholelithiasis, chronic pancreatitis cxr bibasilar scarring trops negative potassium 3.2 currently receives ns with kcl tox screen negative hgb 8.9 cardio consult pending will continue to monitor this patient
[2018-10-12 09:00] VITALS: BP 138/99
[2018-10-12] MEDS: PANTOPRAZOLE 40 MG TAB PO SCH ×2 (09:28→21:52)
[2018-10-12] MEDS: ONDANSETRON HCL 4 MG/2 ML VIAL IV PRN ×2 (09:39→21:53)
[2018-10-12] MEDS: MORPHINE SULF INJ 2 MG/ML SYRINGE 1ML IV PRN ×2 (11:15→21:53)
[2018-10-12] MEDS: FOLIC ACID 1 MG, MULTIPLE VITAMIN 10 ML, MAGNESIUM SULF SDV 50% 8 MEQ, THIAMINE INJ 100... INJ SCH ×5 (11:47)
[2018-10-12 13:00] VITALS: BP 145/98
--- NOTE | 2018-10-12 16:20 | NUR ---
Midline Placement: Patient educated on need for midline placement. All risks and benefits explained and all questions and concerns addresses prior to procedure. 18g/10cm midline inserted via right basilic vein using Ultrasound. Sterile technique utilized. Blood return obtained from single lumen and flushed easily with NS using proper technique. Midline secured with saline lock; biodisc and occlusive dressing applied. Primary RN notified. Midline lot #[id number].
[2018-10-12 16:41] VITALS: BP 140/91
[2018-10-12 18:20] LABS: Basophils # (auto) 0 uL; Basophils % (auto) 0.4 % (0.0-2.0); Eosinophils # (auto) 0 uL; Hemoglobin 8.9 g/dL (12.2-16.2); White Blood Cell 5.2 10^3/uL (4.4-10.8)
[2018-10-12 18:21] LABS: Eosinophils % (auto) 0.6 % (0.0-7.0); Hematocrit 27.9 % (36.0-46.0); Lymphocytes # (auto) 1.2 uL; Lymphocytes % (auto) 24.2 % (10.0-50.0); Mean Corpuscular Hemoglobin 25.4 pg (28.0-32.0); Mean Corpuscular Hgb Conc. 32.1 g/dL (32.0-36.0); Mean Corpuscular Volume 79.3 fL (80.0-100.0); Monocytes # (auto) 0.3 uL; Monocytes % (auto) 5.7 % (0.0-12.0); Neutrophils # (auto) 3.6 uL; Neutrophils % (auto) 69.1 % (37.0-80.0); Nucleated Red Blood Cells % 0.1 %; Platelet Count (auto) 236 10^3/uL (140-450); Red Blood Cells 3.52 10^6/uL (4.0-5.20)
[2018-10-12 18:35] LABS: Anion Gap 9 (5-15); BUN/Creatinine Ratio 1.9; Blood Urea Nitrogen < 1 mg/dL (7-18); Calcium 6.8 mg/dL (8.5-10.1); Carbon Dioxide 25 mmol/L (21-32); Chloride 99 mmol/L (98-107); GFR African American 165 mL/min; GFR Non-African American 136 mL/min; Glucose 100 mg/dL (74-106); Sodium 133 mmol/L (136-145)
[2018-10-12 18:36] LABS: % Iron Saturation 6.6 % (15-50)
[2018-10-12 18:47] LABS: Potassium 2.6 mmol/L (3.5-5.1)
--- NOTE | 2018-10-12 19:20 | NUR ---
Opening Shift Note Received report from Cierra RENO. Assumed care of patient, awake and alert. No S/S of distress/SOB or pain. Instructed on POC and to call for assist PRN, will continue to monitor for changes Q1hr and PRN.
--- NOTE | 2018-10-12 19:53 | NUR ---
Paged hospitalist for critical Potassium of 2.6, awaiting for call back.
--- NOTE | 2018-10-12 20:55 | NUR ---
Hospitalist called back and ordered Potassium 60meq PO x 1 dose, carried out and followed through.
[2018-10-12] MEDS ORDERED: POTASSIUM CHL 20 Meq TABLET PO ONE (21:00)
[2018-10-12 21:40] VITALS: BP 138/93
[2018-10-12] MEDS ORDERED: ATENOLOL 25 MG TAB PO SCH (22:00)
--- NOTE | 2018-10-12 23:55 | NUR ---
Advised patient nothing by mouth after midnight for Left Heart Cath tomorrow, patient verbalized understanding.
[2018-10-13] MEDS ORDERED: SODIUM CHLORIDE 0.9% 1,000 ML IV SCH (00:01)
[2018-10-13] MEDS: MORPHINE SULF INJ 2 MG/ML SYRINGE 1ML IV PRN ×2 (02:32→06:37)
[2018-10-13 05:19] VITALS: BP 137/95
[2018-10-13 05:19] LABS: Basophils # (auto) 0 uL; Hemoglobin 8.5 g/dL (12.2-16.2); Mean Corpuscular Hemoglobin 25.1 pg (28.0-32.0); Mean Corpuscular Hgb Conc. 31.5 g/dL (32.0-36.0); Mean Corpuscular Volume 79.5 fL (80.0-100.0); Monocytes # (auto) 0.3 uL; White Blood Cell 4.8 10^3/uL (4.4-10.8)
[2018-10-13 05:21] LABS: Basophils % (auto) 0.7 % (0.0-2.0); Eosinophils # (auto) 0 uL; Lymphocytes # (auto) 1.5 uL; Lymphocytes % (auto) 30.2 % (10.0-50.0); Monocytes % (auto) 5.7 % (0.0-12.0); Neutrophils % (auto) 62.4 % (37.0-80.0); Nucleated Red Blood Cells % 0.2 %; Platelet Count (auto) 210 10^3/uL (140-450); Red Blood Cells 3.39 10^6/uL (4.0-5.20); Red Cell Distribution Width 26.5 % (11.8-14.3)
[2018-10-13 05:35] LABS: Anion Gap 8 (5-15); BUN/Creatinine Ratio 2.1; Blood Urea Nitrogen < 1 mg/dL (7-18); Calcium 7.2 mg/dL (8.5-10.1); Carbon Dioxide 25 mmol/L (21-32); Chloride 104 mmol/L (98-107); GFR African American 181 mL/min; GFR Non-African American 149 mL/min; Glucose 91 mg/dL (74-106); Potassium 3.3 mmol/L (3.5-5.1); Sodium 137 mmol/L (136-145)
[2018-10-13 05:36] LABS: INR 1.15 (0.9-1.15); Partial Thromboplastin Time 26.4 sec (23.64-32.05)
[2018-10-13] MEDS: ONDANSETRON HCL 4 MG/2 ML VIAL IV PRN (06:37)
--- NOTE | 2018-10-13 07:30 | NUR ---
Care endorsed to Cierra RENO.
--- NOTE | 2018-10-13 07:45 | NUR ---
Opening Patient awake in bed, very anxious, borderline belligerent, awaiting surgery. Boyfriend at bedside, with their granddaughter asleep on the bed with her. She is awaiting surgery and is nervous. Talks about her IV being wet, and it was fine after assessing. No other distress, noted to her we will find out when her procedure will occur when blood bank laboratory technologist nurses call us to update. Will continue to monitor this patient
[2018-10-13 08:00] VITALS: BP 136/89
[2018-10-13] MEDS ORDERED: POTASSIUM CHLORIDE 40 MEQ, LIDOCAINE 1% (LOCAL ANESTH.) 4 ML in SODIUM CHL 0.9% 100 ML IV ONE (09:00)
[2018-10-13] MEDS ORDERED: IOHEXOL 350 MG/ML 100ML IJ ONE (09:47)
[2018-10-13] MEDS ORDERED: LIDOCAINE 2%HCL (LOCAL ANESTH.) INJ 20ML MDV ONE ×2 (09:47→10:07)
[2018-10-13] MEDS ORDERED: fentaNYL CITRATE 100 MCG/2 ML VL ONE (09:51)
[2018-10-13] MEDS ORDERED: ANGIOMAX 250 MG VIAL IV ONE (09:51)
[2018-10-13] MEDS ORDERED: MIDAZOLAM HCL 1MG/1ML-2 ML VIAL ONE ×2 (09:52→10:47)
[2018-10-13] MEDS ORDERED: SODIUM CHL 0.9% 0 ML ONE (09:52)
[2018-10-13] MEDS ORDERED: amLODIPine BESYLATE 5 MG TAB PO SCH (10:00)
[2018-10-13] MEDS ORDERED: diphenhdrAMINE HCL 50 MG/1 ML VL ONE (10:53)
--- NOTE | 2018-10-13 11:07 | NUR ---
Estimated needs based on CBW 79.1 kg-wt. maintenance factors 0604-7088 kcal (22-25 kcal/kg) 63-79 g protein (0.8-1.0 g/kg) Addendum: 10/13/18 at [address] Amended: Links added.
[2018-10-13] MEDS ORDERED: PANT40T PO (13:44)
[2018-10-13] MEDS ORDERED: POTA10TA51 PO (13:45)
[2018-10-13] MEDS ORDERED: MAGN400T21 PO (13:45)
[2018-10-13 13:55] VITALS: BP 138/93
[2018-10-13] MEDS ORDERED: MAGNESIUM OXIDE 400 MG TAB PO SCH (22:00)
== END 2018-10-13 14:30 | disposition home or self-care (01) | DRG 192 ==
LOC: ER 14:37 → EDBD 14:37 → EDUNIT# 14:37 → TELE 14:38 → TELE-WESTW 10-11 18:04
PROVIDERS: ADMIT Nurse Practitioner Acute Care; ATTEND Internal Medicine
PROC: 4A023N7 Measurement of Cardiac Sampling and Pressure, Left Heart, Percutaneous Approach (ICD-10-PCS; principal; 2018-10-13)
PROC: B2111ZZ Fluoroscopy of Multiple Coronary Arteries using Low Osmolar Contrast (ICD-10-PCS; 2018-10-13)
PROC: B2151ZZ Fluoroscopy of Left Heart using Low Osmolar Contrast (ICD-10-PCS; 2018-10-13)
DX: R07.89 Other chest pain (principal); R56.9 Unspecified convulsions; K29.71 Gastritis, unspecified, with bleeding; I24.9 Acute ischemic heart disease, unspecified; E83.42 Hypomagnesemia; E83.51 Hypocalcemia; K86.1 Other chronic pancreatitis; K21.0 Gastro-esophageal reflux disease with esophagitis; F32.9 Major depressive disorder, single episode, unspecified; E87.6 Hypokalemia; H53.8 Other visual disturbances; G89.29 Other chronic pain; I10 Essential (primary) hypertension; D50.9 Iron deficiency anemia, unspecified; K80.20 Calculus of gallbladder without cholecystitis without obstruction; Z90.49 Acquired absence of other specified parts of digestive tract; Z79.899 Other long term (current) drug therapy; Z87.11 Personal history of peptic ulcer disease
CPT/HCPCS: 36415; 71045; 74176; 80048; 80053; 80061; 80307; 83540; 83550; 83735; 83880; 84132; 84484; 85025; 85610; 85730; 86850; 86900; 86901; 93005; 93306; 93458; 96361; 96365; 96375; 99291; G0378; J2001; J2250; J2405; J3490

== ENCOUNTER 2019-09-08 05:33 | Inpatient (IN) | payer MEDICAID, OTHER ==
[~2019-09-08] VITALS: Ht 165.1 cm; Wt 73.5 kg
[2019-09-08] VITALS (17 sets, daily range): BP systolic 82–111; BP diastolic 28–74
[~2019-09-08 05:33] MED LIST changes: +DEXTROSE (50%) 50ML SYRG IV ONE; -FAM20T PO; +FAMO20TA10 PO; +MAGN400T21 PO; +PANT40T PO; +POTA10TA51 PO; -ZOLP12.564 PO; +ZOLP12.569 PO
[2019-09-08] MEDS ORDERED: SUCCINYLCHOLINE CHLORIDE 20 MG/ML 10ML VIAL IV ONE (05:40)
[2019-09-08] MEDS ORDERED: ETOMIDATE (2MG/ML) 20ML VIAL IV ONE (05:40)
[2019-09-08] MEDS ORDERED: DEXTROSE (50%) 50ML SYRG IV ONE ×2 (05:50→07:15)
[2019-09-08] MEDS ORDERED: SODIUM CHLORIDE 0.9% 1,000 ML IVB ONE (05:52)
[2019-09-08] MEDS ORDERED: NOREPINEPHRINE 8 MG/250ML KIT 250 ML IV ONE (06:01)
[2019-09-08] MEDS: NOREPINEPHRINE 8 MG/250ML KIT 250 ML IV SCH (06:08)
[2019-09-08] MEDS ORDERED: DEXTROSE 10% 1,000 ML IV ONE (06:21)
[2019-09-08 06:39] LABS: Basophils # (auto) 0 10 ^3/uL (0-0.2); Basophils % (auto) 0.3 % (0.0-2.0); Lymphocytes # (auto) 2.3 10 ^3/uL (0.4-5.4); Lymphocytes % (auto) 20.5 % (10.0-50.0); Mean Corpuscular Hemoglobin 34.9 pg (28.0-32.0); Monocytes # (auto) 1.2 10 ^3/uL (0-1.3); Nucleated Red Blood Cells % 0.2 %; Red Blood Cells 1.65 10^6/uL (4.0-5.20)
[2019-09-08 06:41] LABS: INR 3.03 (0.9-1.15); Partial Thromboplastin Time 66.6 sec (23.64-32.05)
[2019-09-08 06:43] LABS: Eosinophils # (auto) 0 10 ^3/uL (0-0.8); Eosinophils % (auto) 0.1 % (0.0-7.0); Hematocrit 17.4 % (36.0-46.0); Mean Corpuscular Hgb Conc. 33.3 g/dL (32.0-36.0); Monocytes % (auto) 10.3 % (0.0-12.0); Neutrophils # (auto) 7.8 10 ^3/uL (1.6-8.6); Neutrophils % (auto) 68.8 % (37.0-80.0); Platelet Count (auto) 177 10^3/uL (140-450); Red Cell Distribution Width 14.7 % (11.8-14.3); White Blood Cell 11.4 10^3/uL (4.4-10.8)
[2019-09-08 06:49] LABS: Hemoglobin 5.8 g/dL (12.2-16.2)
[2019-09-08 06:54] LABS: Lactic Acid w/Reflex 9.7 mmol/L (0.4-2.0)
[2019-09-08 06:56] LABS: Anion Gap 21 (5-15); Blood Alcohol < 3.0 mg/dL (0-5); Blood Urea Nitrogen 73 mg/dL (7-18); Calcium 7.1 mg/dL (8.5-10.1); Carbon Dioxide 20 mmol/L (21-32); Chloride 94 mmol/L (98-107); Glucose 203 mg/dL (74-106); Potassium 3.5 mmol/L (3.5-5.1); Sodium 135 mmol/L (136-145)
[2019-09-08 06:59] LABS: Albumin 0.9 g/dL (3.4-5.0)
[2019-09-08 07:03] LABS: Alanine Aminotransferase 69 U/L (13-56); Alkaline Phosphatase 129 U/L (45-117); Aspartate Aminotransferase 161 U/L (15-37); Bilirubin, Total 17.9 mg/dL (0.2-1.0); GFR African American 7 mL/min; GFR Non-African American 6 mL/min; Total Protein 4.2 g/dL (6.4-8.2)
[2019-09-08] MEDS ORDERED: VANCOMYCIN 1GM/250ML 250 ML IV ONE (07:15)
[2019-09-08] MEDS ORDERED: ALBUMIN 25% 100 ML IV ONE ×2 (07:15→15:00)
[2019-09-08] MEDS ORDERED: PANTOPRAZOLE 40 MG/10 ML VIAL INJ IV ONE ×2 (07:30→10:45)
[2019-09-08] MEDS ORDERED: PIPERACILLIN-TAZOB 3.375GM 100 ML IV ONE (07:30)
[2019-09-08] MEDS ORDERED: PANTOPRAZOLE 40mg/50ML NS AE 50 ML IV ONE ×3 (07:30→17:30)
[2019-09-08] MEDS: MIDAZOLAM DRIP 50 mg/50mL 50 ML IV SCH (09:30)
[2019-09-08 09:53] LABS: Amylase 34 U/L (25-115); Lipase 27 U/L (73-393)
[2019-09-08] MEDS ORDERED: PHYTONADIONE (VIT K)10 MG/ML 1ML VIAL IV ONE (10:15)
[2019-09-08] MEDS ORDERED: PHYTONADIONE (VIT K)10 MG/ML 1ML VIAL SUBCUT ONE (10:15)
[2019-09-08] MEDS ORDERED: MORPHINE SULF INJ 2 MG/ML SYRINGE 1ML IV PRN (10:30)
[2019-09-08] MEDS ORDERED: NITROGLYCERIN 0.4 MG SL TAB SL PRN (10:30)
[2019-09-08] MEDS ORDERED: ALBUTEROL SULF 2.5 MG/0.5ML(0.5%) NEB SOLN NEB PRN (10:45)
[2019-09-08 10:46] LABS: Urine Bacteria MANY /hpf (None Seen); Urine Blood 2+ /uL (Negative); Urine WBC 514 /hpf (0 - 5); Urine WBC Clumps PRESENT /hpf (None Seen)
[2019-09-08 10:52] LABS: Urine Specific Gravity 1.028 (1.001-1.035)
[2019-09-08] MEDS ORDERED: LACTULOSE 10g/15ml SOLN PR ONE (11:00)
[2019-09-08 11:06] LABS: Alcohol, Urine < 3.0 mg/dL (0-10); Amphetamine Screen, Urine NEGATIVE (NEGATIVE); Barbiturate Scree,Urine NEGATIVE (NEGATIVE); Benzodiazephine Screen, Urine NEGATIVE (NEGATIVE); Cannabinoid Screen, Urine NEGATIVE (NEGATIVE); Cocaine Screen, Urine NEGATIVE (NEGATIVE); Opiate Scree,Urine NEGATIVE (NEGATIVE); Phencyclidine Screen, Urine NEGATIVE (NEGATIVE)
[2019-09-08] MEDS: SODIUM CHLORIDE 0.9% 1,000 ML IV SCH ×2 (11:06→21:15)
[2019-09-08] MEDS: LINEZOLID 600MG/300ML 300 ML IV SCH ×2 (11:09→22:36)
[2019-09-08] MEDS: IPRATROPIUM BROM 0.5 MG/2.5ML INH SOL NEB SCH ×2 (11:37→18:50)
[2019-09-08] MEDS: ALBUTEROL SULF 2.5 MG/0.5ML(0.5%) NEB SOLN NEB SCH ×2 (11:37→18:50)
[2019-09-08] MEDS: OCTREOTIDE ACETATE 500 MCG in SODIUM CHL 0.9% 99 ML IV SCH (13:30)
[2019-09-08] MEDS ORDERED: OCTREOTIDE ACETATE 100 MCG in SODIUM CHL 0.9% 50 ML IV ONE (13:30)
[2019-09-08] MEDS: LACTULOSE 20Gm/30ML SOLN NG SCH ×3 (14:00→22:00)
[2019-09-08] MEDS: PIPERACILLIN-TAZOB 2.25GM 50 ML IV SCH ×2 (14:19→22:05)
[2019-09-08] MEDS ORDERED: VASOPRESSIN 50 UNITS in D5W 5% 247.5 ML IV SCH (14:45)
[2019-09-08] MEDS: VASOPRESSIN 50 UNITS in D5W 5% 247.5 ML IV SCH (15:13)
[2019-09-08 15:41] LABS: Hemoglobin 7.8 g/dL (12.2-16.2)
[2019-09-08 15:44] LABS: Hematocrit 23.7 % (36.0-46.0); Mean Corpuscular Hemoglobin 31.8 pg (28.0-32.0); Mean Corpuscular Hgb Conc. 32.8 g/dL (32.0-36.0); Platelet Count (auto) 137 10^3/uL (140-450); Red Blood Cells 2.44 10^6/uL (4.0-5.20); White Blood Cell 16.8 10^3/uL (4.4-10.8)
[2019-09-08 15:55] LABS: Basophils % (manual) 0 (0.0-2.0); Blast Cells 0; Eosinophils % (manual) 0 (0-7); Metamyelocytes % 0; Myelocytes % 0; Promyelocytes % 0; Reactive Lymphocytes 0
[2019-09-08 15:58] LABS: Albumin 1.9 g/dL (3.4-5.0); Calcium 6.3 mg/dL (8.5-10.1); Potassium 3.1 mmol/L (3.5-5.1)
[2019-09-08 16:06] LABS: Protein, Urine 221.8 mg/dL (0.0-11.9)
[2019-09-08 16:10] LABS: Bilirubin, Total 23.8 mg/dL (0.2-1.0); Total Protein 4.6 g/dL (6.4-8.2)
[2019-09-08] MEDS ORDERED: POTASSIUM CHL 20MEQ/100ML 100 ML IV ONE ×2 (16:15→16:24)
[2019-09-08 16:48] LABS: Band Neutrophils % (manual) 2; Lymphocytes % (manual) 23 (10.0-50.0); Monocytes % (manual) 5 (0-12)
--- NOTE | 2019-09-08 17:15 | NUR ---
WOUND CARE NOTE: Wound care in to see patient per wound care request regarding sacral/buttock wounds that are noted present on admission. Patient is 43 years old female with admitting diagnosis of Hepatic Encephalopathy. Patient is resting in bed #5. Patient is intubated,sedated and mechanically ventilated. Patient appears to be in no pain using Merritt Hastings Faces pain Scale. Her Sylvain score is 10. Skin assessment done with the assistance of patient's nurse, SHADIA Briseno. Noted patient has multiple open full thickness wounds to Lt sacrum (4x2.5cm), L buttock (3x0.5cm) and Rt sacrum (5x3cm). Wound beds are red with yellow, minimal serous drainage noted, no odor noted. 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 Patient passed moderate amount of black tarry stools, Alysha care given. Photograph of patient's wounds are taken for reference. Applied Thera honey gauze to multi open wounds and covered with Opti foam gentle dressing. Applied skin protectant to lower buttocks, perirectal area. Patient tolerated well, repositioned patient for comfort facing her Rt side, redistributed pressure points with wedges and pillows. RECOMMENDATION: Nursing to continue with Daily/PRN dressing change to sacral/buttocks wounds per MD order, BID/PRN cleaning and application of skin protectant to lower buttocks, perirectal area as preventative, Dietary consult, frequent turning and repositioning schedule as condition permits, redistribute pressure points with pillows, air mattress (ordered), frequent alysha care/check, keep clean and dry, elevate heels on pillows, continue monitoring by wound care while patient is hospitalized. Addendum: 09/08/19 at 1812 by Kate Murphy RN Amended: Links added.
--- NOTE | 2019-09-08 17:25 | NUR ---
ICU LOW AIR LOSS BED: Called harp maker to request for ICU bed. Per chance Vega, no ICU bed available at this time but will be able to bring hospital bed.
--- NOTE | 2019-09-08 17:37 | NUR ---
AIR MATTRESS: Air mattress ordered at [facility]. ETA 09/08/19 @ 2333. Reference #[id number]. Please call [facility] at if needed to follow up. Addendum: 09/08/19 at 1738 by Kate Murphy RN Amended: Links added. Addendum: 09/09/19 at 0936 by Kate Murphy RN [facility] Air mattress not delivered. Per Marcello Vega ICU Low Air Loss Bed is now available and she will bring one in ED for patient. [facility] bed cancelled.
[2019-09-08] MEDS: PANTOPRAZOLE 40mg/50ML NS AE 50 ML IV SCH ×2 (17:51→22:36)
[2019-09-08 19:01] LABS: Hematocrit 23.1 % (36.0-46.0); Hemoglobin 7.7 g/dL (12.2-16.2)
[2019-09-08 19:12] LABS: INR 2.38 (0.9-1.15)
[2019-09-08] MEDS ORDERED: EPINEPHrine HCL 250 ML IV ONE (20:37)
[2019-09-08] MEDS: EPINEPHrine HCL INJECTION 4 MG in SODIUM CHL 0.9% 250 ML IV SCH (20:52)
[2019-09-08] MEDS: PANTOPRAZOLE 40 MG/10 ML VIAL INJ IV SCH (22:04)
[2019-09-09] VITALS (12 sets, daily range): BP systolic 93–118; BP diastolic 32–75
[2019-09-09] MEDS: OCTREOTIDE ACETATE 500 MCG in SODIUM CHL 0.9% 99 ML IV SCH ×2 (00:24→10:09)
[2019-09-09 00:38] LABS: Hematocrit 22.5 % (36.0-46.0); Hemoglobin 7.5 g/dL (12.2-16.2)
[2019-09-09] MEDS: ALBUTEROL SULF 2.5 MG/0.5ML(0.5%) NEB SOLN NEB SCH ×4 (00:56→18:00)
[2019-09-09] MEDS: IPRATROPIUM BROM 0.5 MG/2.5ML INH SOL NEB SCH ×4 (00:57→18:00)
[2019-09-09] MEDS: LACTULOSE 20Gm/30ML SOLN NG SCH ×6 (02:00→22:00)
[2019-09-09] MEDS ORDERED: EPINEPHrine HCL 250 ML IV ONE (03:33)
[2019-09-09] MEDS ORDERED: VASOPRESSIN 20 UNIT/ML ONE (04:08)
[2019-09-09] MEDS: VASOPRESSIN 50 UNITS in D5W 5% 247.5 ML IV SCH (04:18)
[2019-09-09] MEDS: NOREPINEPHRINE 8 MG/250ML KIT 250 ML IV SCH ×2 (04:54→23:30)
[2019-09-09] MEDS: PANTOPRAZOLE 40mg/50ML NS AE 50 ML IV SCH ×4 (05:23→20:50)
[2019-09-09 05:44] LABS: Hematocrit 27.3 % (36.0-46.0); Hemoglobin 9.3 g/dL (12.2-16.2); Mean Corpuscular Hemoglobin 31.7 pg (28.0-32.0); Mean Corpuscular Hgb Conc. 33.9 g/dL (32.0-36.0); Mean Corpuscular Volume 93.5 fL (80.0-100.0); Platelet Count (auto) 109 10^3/uL (140-450); Red Blood Cells 2.92 10^6/uL (4.0-5.20); Red Cell Distribution Width 17.5 % (11.8-14.3); White Blood Cell 18.8 10^3/uL (4.4-10.8)
[2019-09-09 05:52] LABS: Band Neutrophils % (manual) 0; Basophils % (manual) 0 (0.0-2.0); Blast Cells 0; Metamyelocytes % 0; Myelocytes % 0; Promyelocytes % 0; Reactive Lymphocytes 0
[2019-09-09 06:03] LABS: Albumin 1.7 g/dL (3.4-5.0); BUN/Creatinine Ratio 9.4; Calcium 6.6 mg/dL (8.5-10.1)
[2019-09-09 06:22] LABS: Potassium 2.9 mmol/L (3.5-5.1)
[2019-09-09 06:23] LABS: Total Protein 4.3 g/dL (6.4-8.2)
[2019-09-09] MEDS: PIPERACILLIN-TAZOB 2.25GM 50 ML IV SCH ×3 (06:36→22:00)
[2019-09-09] MEDS ORDERED: POTASSIUM CHLORIDE 40 MEQ in D5W 5% 1,000 ML IV SCH (06:45)
[2019-09-09 07:05] LABS: Eosinophils % (manual) 1 (0-7); Lymphocytes % (manual) 26 (10.0-50.0); Monocytes % (manual) 11 (0-12)
[2019-09-09] MEDS: SODIUM CHLORIDE 0.9% 1,000 ML IV SCH ×2 (08:21→10:09)
[2019-09-09] MEDS: MIDAZOLAM DRIP 50 mg/50mL 50 ML IV SCH (09:32)
[2019-09-09] MEDS: POTASSIUM CHL 20MEQ/100ML 100 ML IV SCH ×3 (09:56→14:40)
[2019-09-09] MEDS: LINEZOLID 600MG/300ML 300 ML IV SCH ×2 (10:00→22:00)
[2019-09-09] MEDS: PANTOPRAZOLE 40 MG/10 ML VIAL INJ IV SCH ×2 (10:15→22:00)
[2019-09-09] MEDS: ALBUMIN 25% 100 ML IV SCH ×2 (10:31→17:41)
[2019-09-09] MEDS: AZITHROMYCIN 500MG/ 250ML 250 ML IV SCH (10:37)
--- NOTE | 2019-09-09 15:46 | NUR ---
Consult Consider Osmolite 1.2 at 40 ml/hr with a goal of 60ml/hr if pt labs improve per MD approval Consider Nephrovite and Vitamin C 500mg BID for wound healing Est energy needs 8219-0582 kcal (20-25 kcal/kg BW 81.6kg) Est protein needs 49-57g (0.6-0.7g/kg BW 81.6kg r/t elevated RFTs, elevated ammonia) Will reassess prn. Addendum: 09/09/19 at [address] Amended: Links added.
[2019-09-09 18:44] LABS: Hematocrit 24.8 % (36.0-46.0); Hemoglobin 8.5 g/dL (12.2-16.2)
[2019-09-09 19:26] LABS: INR 2.89 (0.9-1.15)
[2019-09-09] MEDS: EPINEPHrine HCL INJECTION 4 MG in SODIUM CHL 0.9% 250 ML IV SCH (23:30)
[2019-09-10] VITALS (17 sets, daily range): BP systolic 0–131; BP diastolic 0–81
[2019-09-10] MEDS: ALBUTEROL SULF 2.5 MG/0.5ML(0.5%) NEB SOLN NEB SCH ×4 (00:15→19:42)
[2019-09-10] MEDS: IPRATROPIUM BROM 0.5 MG/2.5ML INH SOL NEB SCH ×4 (00:15→19:42)
[2019-09-10] MEDS: OCTREOTIDE ACETATE 500 MCG in SODIUM CHL 0.9% 99 ML IV SCH ×3 (01:00→15:44)
[2019-09-10] MEDS: PANTOPRAZOLE 40mg/50ML NS AE 50 ML IV SCH ×4 (01:00→14:30)
[2019-09-10] MEDS: ALBUMIN 25% 100 ML IV SCH (01:30)
[2019-09-10] MEDS: LACTULOSE 20Gm/30ML SOLN NG SCH ×5 (02:15→18:00)
[2019-09-10] MEDS: SODIUM CHLORIDE 0.9% 1,000 ML IV SCH ×2 (02:30→12:10)
[2019-09-10] MEDS: VASOPRESSIN 50 UNITS in D5W 5% 247.5 ML IV SCH (04:42)
[2019-09-10] MEDS: NOREPINEPHRINE 8 MG/250ML KIT 250 ML IV SCH (04:53)
[2019-09-10] MEDS: PIPERACILLIN-TAZOB 2.25GM 50 ML IV SCH ×2 (06:19→14:00)
[2019-09-10] MEDS: EPINEPHrine HCL INJECTION 4 MG in SODIUM CHL 0.9% 250 ML IV SCH ×2 (07:06→13:36)
[2019-09-10 07:58] LABS: Hematocrit 22.1 % (36.0-46.0); Hemoglobin 7.5 g/dL (12.2-16.2); Mean Corpuscular Hemoglobin 32.3 pg (28.0-32.0); Mean Corpuscular Hgb Conc. 34.1 g/dL (32.0-36.0); Mean Corpuscular Volume 94.7 fL (80.0-100.0); Platelet Count (auto) 47 10^3/uL (140-450); Red Blood Cells 2.33 10^6/uL (4.0-5.20); White Blood Cell 19.6 10^3/uL (4.4-10.8)
[2019-09-10 08:08] LABS: Basophils % (manual) 0 (0.0-2.0); Blast Cells 0; Eosinophils % (manual) 0 (0-7); Myelocytes % 0; Promyelocytes % 0; Reactive Lymphocytes 0
[2019-09-10 08:13] LABS: Albumin 2.3 g/dL (3.4-5.0); Amylase 7 U/L (25-115); Anion Gap 19 (5-15); Blood Urea Nitrogen 74 mg/dL (7-18); Calcium 6.4 mg/dL (8.5-10.1); Carbon Dioxide 11 mmol/L (21-32); Chloride 102 mmol/L (98-107); Glucose 92 mg/dL (74-106); Lipase < 10 U/L (73-393); Potassium 3.9 mmol/L (3.5-5.1); Sodium 132 mmol/L (136-145)
[2019-09-10 08:28] LABS: Alanine Aminotransferase 103 U/L (13-56); Alkaline Phosphatase 94 U/L (45-117); Aspartate Aminotransferase 181 U/L (15-37); BUN/Creatinine Ratio 10.6; Bilirubin, Total 28.5 mg/dL (0.2-1.0); GFR African American 8 mL/min; GFR Non-African American 7 mL/min; Total Protein 4.4 g/dL (6.4-8.2)
[2019-09-10 08:43] LABS: Band Neutrophils % (manual) 9; Lymphocytes % (manual) 12 (10.0-50.0); Metamyelocytes % 2; Monocytes % (manual) 4 (0-12)
[2019-09-10] MEDS: MIDAZOLAM DRIP 50 mg/50mL 50 ML IV SCH (09:32)
[2019-09-10] MEDS: PANTOPRAZOLE 40 MG/10 ML VIAL INJ IV SCH (09:58)
[2019-09-10] MEDS: AZITHROMYCIN 500MG/ 250ML 250 ML IV SCH (10:00)
[2019-09-10] MEDS: LINEZOLID 600MG/300ML 300 ML IV SCH (10:00)
[2019-09-10] MEDS ORDERED: SODIUM BICARBONATE 8.4 % INJ 50ML VIAL IV ONE (11:00)
[2019-09-10] MEDS ORDERED: SODIUM BICARBONATE 50ML VIAL 50 ML in D5W 5% 1,000 ML IV SCH (11:00)
[2019-09-10] MEDS ORDERED: SODIUM BICARBONATE 8.4% INJ 50ML SYRINGE ONE ×3 (11:01→14:08)
[2019-09-10] MEDS ORDERED: DEXTROSE 50% SYRINGE 50 ML IV ONE (13:12)
[2019-09-10] MEDS ORDERED: BUMETANIDE 2.5mg/10ml (0.25 mg/ml) INJ IV ONE (13:45)
[2019-09-10] MEDS ORDERED: SODIUM BICARBONATE 8.4 % INJ 50ML VIAL IV STA (13:45)
--- NOTE | 2019-09-10 14:10 | NUR ---
ABG DONE. DR EUBANKS WAS CALLED. WAITING FOR NEW ORDERS.
[2019-09-10 18:59] LABS: Hematocrit 20.7 % (36.0-46.0)
[2019-09-10 19:08] LABS: Hemoglobin 6.9 g/dL (12.2-16.2)
--- NOTE | 2019-09-10 20:00 | NUR ---
report received and assumed care; see interventions for assessment; vs are stable at this time with patient on levophed gtt at 30mcg/vasopressin at 0.07 units/ epinephrine at 10 mcg/ octreotide at 10mls/ pantoprazole gtt at 8mg/ d5w w/ x1 amp NaHCO3 at 50ml/hr; pt, intubated/vented and not responsive, no cough or gag, and lt. pupil blown; dr. Vazquez at bedside evaluating and agrees that patient is a very poor prognosis; pt. has no urine output at this time; OGT clamped with 30ml dark brown residual; will cont. to monitor.
--- NOTE | 2019-09-10 20:40 | NUR ---
pt. Иван, at bedside and is decision maker for patient care and is wanting to discontinue care and provide comfort measures at this time; spoke with Иван in detail about patient health status and poor prognosis; will page hospitalist and inform of decision.
--- NOTE | 2019-09-10 21:00 | NUR ---
s/w hospitalist and informed that patient son at bedside and wanting to discontinue current treatment and provide comfort measures only; hospitalist will come to bedside to discuss with son.
--- NOTE | 2019-09-10 21:50 | NUR ---
CODE STATUS: PATIENT NEXT OF KIN-RENAE LOPEZ (SON) IS REQUESTING TO TERMINALLY WEAN PATIENT AND PLACE ON COMFORT MEASURES ONLY; DISCUSSED WITH HOSPITALIST Balaji HANSEN NP AND CODE STATUS FORM SIGNED.
--- NOTE | 2019-09-10 21:55 | NUR ---
FAMILY AT BEDSIDE TO SAY GOODBYE AND LEFT FOR HOME-LURDES MACDONALD. SON WANTS TO BE CALLED WHEN TIME OF .
--- NOTE | 2019-09-10 22:10 | NUR ---
RT NOTE: RECEIVED ORDER FOR TERMINAL WEAN, ORDER SIGNED BY MEMO HANSEN AND FAMILY MEMBER. ETT REMOVED AND SUCTIONED WITHOUT INCIDENT. SHADIA SIBLEY AT BEDSIDE.
--- NOTE | 2019-09-10 22:10 | NUR ---
RT AT BEDSIDE AND REMOVED ETT AND ALL GTTS TURNED OFF WITH EXCEPTION OF VERSED GTT ON AT 15MG/HR FOR COMFORT MEASURES.
--- NOTE | 2019-09-11 04:06 | NUR ---
SEE ER NOTES: [facility] CALLED AND GAVE CASE#; [facility] CALLED AND STILL AWAITING RELEASE OF BODY.
== END 2019-09-10 22:24 | disposition expired | DRG 720 ==
LOC: ER 05:33 → EDBD 05:33 → TELE 05:34 → MERGE 05:34
PROVIDERS: ADMIT Internal Medicine; ATTEND Internal Medicine
PROC: 5A1945Z Respiratory Ventilation, 24-96 Consecutive Hours (ICD-10-PCS; 2019-09-08)
PROC: 0BH17EZ Insertion of Endotracheal Airway into Trachea, Via Natural or Artificial Opening (ICD-10-PCS; 2019-09-08)
PROC: 30233K1 Transfusion of Nonautologous Frozen Plasma into Peripheral Vein, Percutaneous Approach (ICD-10-PCS; 2019-09-08)
PROC: 30233N1 Transfusion of Nonautologous Red Blood Cells into Peripheral Vein, Percutaneous Approach (ICD-10-PCS; 2019-09-08)
PROC: 0DB68ZX Excision of Stomach, Via Natural or Artificial Opening Endoscopic, Diagnostic (ICD-10-PCS; principal; 2019-09-08 15:30)
DX: A41.9 Sepsis, unspecified organism (principal); J96.01 Acute respiratory failure with hypoxia; E16.2 Hypoglycemia, unspecified; G93.41 Metabolic encephalopathy; I12.9 Hypertensive chronic kidney disease with stage 1 through stage 4 chronic kidney disease, or unspecified chronic kidney disease; K22.11 Ulcer of esophagus with bleeding; N17.0 Acute kidney failure with tubular necrosis; N18.9 Chronic kidney disease, unspecified; T38.3X5A Adverse effect of insulin and oral hypoglycemic [antidiabetic] drugs, initial encounter; J18.9 Pneumonia, unspecified organism; R65.21 Severe sepsis with septic shock; N39.0 Urinary tract infection, site not specified; D62 Acute posthemorrhagic anemia; K80.20 Calculus of gallbladder without cholecystitis without obstruction; K70.31 Alcoholic cirrhosis of liver with ascites; R57.1 Hypovolemic shock; E44.0 Moderate protein-calorie malnutrition; E87.6 Hypokalemia; E87.1 Hypo-osmolality and hyponatremia; D68.4 Acquired coagulation factor deficiency; D69.6 Thrombocytopenia, unspecified; E87.2 Acidosis; F17.200 Nicotine dependence, unspecified, uncomplicated; G93.1 Anoxic brain damage, not elsewhere classified; G93.5 Compression of brain; K31.89 Other diseases of stomach and duodenum; K76.6 Portal hypertension; Y92.89 Other specified places as the place of occurrence of the external cause; Z20.828 Contact with and (suspected) exposure to other viral communicable diseases; K76.0 Fatty (change of) liver, not elsewhere classified; Z66 Do not resuscitate; Z51.5 Encounter for palliative care; Z68.27 Body mass index [BMI] 27.0-27.9, adult; K72.91 Hepatic failure, unspecified with coma; K29.71 Gastritis, unspecified, with bleeding; Z86.69 Personal history of other diseases of the nervous system and sense organs
CPT/HCPCS: 31500; 36415; 36430; 36600; 70450; 71045; 71250; 74176; 76775; 80053; 80307; 80320; 81001; 82140; 82150; 82550; 82570; 82805; 82962; 83605; 83690; 83735; 83880; 84156; 84300; 84484; 85007; 85014; 85018; 85025; 85027; 85045; 85610; 85652; 85730; 86850; 86900; 86901; 86920; 87040; 87070; 87081; 87086; 87205; 93005; 94002; 94003; 94640; 96365; 96366; 96368; 96375; C9113; G0378; J0171; J2250; J2543; J3430; J3480; J7060; P9047